=== PATIENT | male | born 1945 | race Caucasian/White ===

== ENCOUNTER 2016-12-15 20:10 | Inpatient (IN) | payer MEDICARE ==
[~2016-12-15] VITALS: Ht 193 cm; Wt 115.7 kg
[2016-12-15] MEDS ORDERED: ENALAPRILAT 1.25 MG/ML, 2ML IVPush PRN (22:00)
[2016-12-15] MEDS ORDERED: VANCOMYCIN PER PHARMACY MC PRN (22:00)
[2016-12-15] MEDS ORDERED: ONDANSETRON 2MG/ML, 2ML IVPush PRN (22:00)
[2016-12-15] MEDS ORDERED: PLEASE ENTER ALLERGIES MC SCH ×2 (22:00)
[2016-12-15] MEDS ORDERED: TEMAZEPAM 15 MG CAPSULE PO PRN (22:00)
[2016-12-15] MEDS ORDERED: PHARMACOKINETIC MONITORING MC PRN (22:30)
[2016-12-15] MEDS ORDERED: VANCOMYCIN 2,100 MG in SODIUM CHLORIDE 0.9% 500 ML IV ONE (22:30)
[2016-12-15] MEDS ORDERED: PHARMACOKINETIC CONSULTATION MC ONE (22:30)
[2016-12-15] MEDS: PIPERACILLIN/TAZO/PMX 3.375GM 50 ML IV SCH (22:45)
[2016-12-15] MEDS: INSULIN ASPART 100 UNITS/ML, PEN SQ-INSULIN SCH (22:46)
[2016-12-16 02:29] VITALS: BP 103/63
[2016-12-16] MEDS: PIPERACILLIN/TAZO/PMX 3.375GM 50 ML IV SCH ×4 (04:12→21:28)
[2016-12-16 04:34] LABS: HEMATOCRIT 42.3 % (39.2-51.8); HEMOGLOBIN 14.2 g/dL (13.7-18.0); WHITE BLOOD COUNT 11.6 x10^3/uL (3.4-10)
[2016-12-16 04:46] LABS: ASPARTATE AMINO TRANSFERASE 17 U/L (15-37); BLOOD UREA NITROGEN 12 mg/dL (7-18)
[2016-12-16] MEDS: VANCOMYCIN 2,100 MG in SODIUM CHLORIDE 0.9% 500 ML IV SCH (06:04)
[2016-12-16] MEDS: INSULIN ASPART 100 UNITS/ML, PEN SQ-INSULIN SCH ×4 (07:00→21:00)
[2016-12-16] MEDS: LACTOBACILLUS 1GM/ PACKET PO SCH ×3 (07:34→21:28)
[2016-12-16 08:53] VITALS: BP 116/75
[2016-12-16] MEDS ORDERED: FENTANYL PF 100 MCG/2ML ONE ×3 (11:03→12:06)
[2016-12-16] MEDS ORDERED: BUPIVACAINE/PF 0.5% ONE (11:40)
[2016-12-16] MEDS ORDERED: ACETAMINOPHEN 325 MG TABLET PO PRN (13:00)
[2016-12-16] MEDS ORDERED: FENTANYL PF 100 MCG/2ML IV PRN (13:00)
[2016-12-16] MEDS ORDERED: LABETALOL 5MG/ML, 20ML IV PRN (13:00)
[2016-12-16] MEDS ORDERED: OXYcodone 5 MG/5 ML ORAL.SOL UDC PO PRN (13:00)
[2016-12-16] MEDS ORDERED: ONDANSETRON 2MG/ML, 2ML IVPush PRN (13:00)
[2016-12-16] MEDS ORDERED: HYDROmorphone 1 MG/ML, 1ML IV PRN (13:00)
[2016-12-16 14:15] VITALS: BP 152/98
[2016-12-16] MEDS: ACETAMINOPHEN 325 MG TABLET PO PRN ×2 (15:34→21:28)
[2016-12-16] MEDS ORDERED: ONDANSETRON 2MG/ML, 2ML ONE (15:40)
[2016-12-16] MEDS ORDERED: PROPOFOL 10 MG/ML, 20ML ONE (15:40)
[2016-12-17] VITALS: BP 142/77
[2016-12-17 03:12] VITALS: BP 114/74
[2016-12-17] MEDS: PIPERACILLIN/TAZO/PMX 3.375GM 50 ML IV SCH ×4 (04:26→21:59)
[2016-12-17] MEDS: ACETAMINOPHEN 325 MG TABLET PO PRN (04:28)
[2016-12-17] MEDS: VANCOMYCIN 2,100 MG in SODIUM CHLORIDE 0.9% 500 ML IV SCH (05:51)
[2016-12-17] MEDS: INSULIN ASPART 100 UNITS/ML, PEN SQ-INSULIN SCH ×4 (06:30→21:59)
[2016-12-17 06:33] VITALS: BP 116/78
[2016-12-17] MEDS: LACTOBACILLUS 1GM/ PACKET PO SCH ×3 (09:11→21:59)
[2016-12-17 12:09] VITALS: BP 126/79
[2016-12-17] MEDS: CLOPIDOGREL 75 MG TABLET PO SCH (16:22)
[2016-12-17 19:10] VITALS: BP 136/72
[2016-12-18 02:00] VITALS: BP 147/70
[2016-12-18] MEDS: PIPERACILLIN/TAZO/PMX 3.375GM 50 ML IV SCH ×3 (04:08→18:02)
[2016-12-18] MEDS: VANCOMYCIN 2,100 MG in SODIUM CHLORIDE 0.9% 500 ML IV SCH (06:05)
[2016-12-18] MEDS: INSULIN ASPART 100 UNITS/ML, PEN SQ-INSULIN SCH ×4 (07:50→20:25)
[2016-12-18 08:06] VITALS: BP 133/82
[2016-12-18] MEDS: CLOPIDOGREL 75 MG TABLET PO SCH (08:50)
[2016-12-18] MEDS: LACTOBACILLUS 1GM/ PACKET PO SCH ×3 (08:50→20:25)
[2016-12-18 14:32] VITALS: BP 149/89
[2016-12-18 18:53] VITALS: BP 109/61
[2016-12-19] MEDS: PIPERACILLIN/TAZO/PMX 3.375GM 50 ML IV SCH ×5 (00:03→23:39)
[2016-12-19 00:36] VITALS: BP 120/90
[2016-12-19] MEDS: VANCOMYCIN 2,100 MG in SODIUM CHLORIDE 0.9% 500 ML IV SCH (06:10)
[2016-12-19 06:35] VITALS: BP 133/64
[2016-12-19] MEDS: CLOPIDOGREL 75 MG TABLET PO SCH (08:09)
[2016-12-19] MEDS: LACTOBACILLUS 1GM/ PACKET PO SCH ×3 (08:10→21:00)
[2016-12-19] MEDS: INSULIN ASPART 100 UNITS/ML, PEN SQ-INSULIN SCH ×4 (08:10→21:00)
[2016-12-19 13:19] VITALS: BP 132/70
[2016-12-19 18:48] VITALS: BP 138/76
[2016-12-20 01:30] VITALS: BP 127/61
[2016-12-20] MEDS: PIPERACILLIN/TAZO/PMX 3.375GM 50 ML IV SCH ×3 (05:46→21:18)
[2016-12-20 06:04] LABS: HEMATOCRIT 39.9 % (39.2-51.8); HEMOGLOBIN 13.4 g/dL (13.7-18.0); WHITE BLOOD COUNT 10.6 x10^3/uL (3.4-10)
[2016-12-20 08:05] VITALS: BP 132/66
[2016-12-20] MEDS: CLOPIDOGREL 75 MG TABLET PO SCH (08:09)
[2016-12-20] MEDS: LACTOBACILLUS 1GM/ PACKET PO SCH ×3 (08:09→21:17)
[2016-12-20] MEDS: INSULIN ASPART 100 UNITS/ML, PEN SQ-INSULIN SCH ×4 (08:09→21:20)
[2016-12-20 12:40] VITALS: BP 145/88
[2016-12-20] MEDS ORDERED: VANCOMYCIN 2,000 MG in SODIUM CHLORIDE 0.9% 500 ML IV SCH (17:00)
[2016-12-20 18:54] VITALS: BP 144/75
[2016-12-21] MEDS: PIPERACILLIN/TAZO/PMX 3.375GM 50 ML IV SCH ×3 (02:56→15:00)
[2016-12-21 03:03] VITALS: BP 148/70
[2016-12-21] MEDS: INSULIN ASPART 100 UNITS/ML, PEN SQ-INSULIN SCH ×4 (06:43→21:01)
[2016-12-21 09:00] VITALS: BP 146/76
[2016-12-21] MEDS: CLOPIDOGREL 75 MG TABLET PO SCH (09:30)
[2016-12-21] MEDS: LACTOBACILLUS 1GM/ PACKET PO SCH ×3 (09:30→21:00)
[2016-12-21 14:00] VITALS: BP 127/76
[2016-12-21] MEDS ORDERED: PIPERACILLIN/TAZO(ZOSYN) 2.25 GM in NS 50 ML IVPB SCH (15:30)
[2016-12-21 16:14] LABS: BLOOD UREA NITROGEN 42 mg/dL (7-18)
[2016-12-21 19:46] VITALS: BP 155/85
[2016-12-21] MEDS: PIPERACILLIN/TAZO/PMX 2.25GM 50 ML IVPB SCH (23:03)
[2016-12-22 02:07] VITALS: BP 160/91
[2016-12-22 05:41] LABS: BLOOD UREA NITROGEN 44 mg/dL (7-18)
[2016-12-22] MEDS: PIPERACILLIN/TAZO/PMX 2.25GM 50 ML IVPB SCH ×3 (05:59→20:53)
[2016-12-22] MEDS: INSULIN ASPART 100 UNITS/ML, PEN SQ-INSULIN SCH ×4 (05:59→20:59)
[2016-12-22 07:02] VITALS: BP 147/90
[2016-12-22] MEDS: LACTOBACILLUS 1GM/ PACKET PO SCH ×3 (08:45→20:53)
[2016-12-22] MEDS: CLOPIDOGREL 75 MG TABLET PO SCH (08:45)
[2016-12-22 12:12] LABS: POTASSIUM,URINE RANDOM 12 mmol/L
[2016-12-22 14:58] VITALS: BP 172/82
[2016-12-22 20:48] VITALS: BP 157/85
[2016-12-23] MEDS: PIPERACILLIN/TAZO/PMX 2.25GM 50 ML IVPB SCH ×4 (01:47→20:06)
[2016-12-23 02:02] VITALS: BP 153/87
[2016-12-23 04:33] LABS: HEMATOCRIT 39.8 % (39.2-51.8); HEMOGLOBIN 13.3 g/dL (13.7-18.0); WHITE BLOOD COUNT 9.4 x10^3/uL (3.4-10)
[2016-12-23 04:49] LABS: BLOOD UREA NITROGEN 32 mg/dL (7-18)
[2016-12-23 04:53] LABS: ASPARTATE AMINO TRANSFERASE 23 U/L (15-37); FERRITIN 746.4 ng/mL (26-388); TOTAL IRON BINDING CAPACITY 149 mcg/dL (250-450)
[2016-12-23] MEDS: INSULIN ASPART 100 UNITS/ML, PEN SQ-INSULIN SCH ×4 (07:00→20:30)
[2016-12-23 07:50] VITALS: BP 134/67
[2016-12-23] MEDS: LACTOBACILLUS 1GM/ PACKET PO SCH ×3 (09:00→20:07)
[2016-12-23 09:03] LABS: HEP B SURF. AB < 3.1 mIU/mL (0.0-10.0)
[2016-12-23] MEDS: CLOPIDOGREL 75 MG TABLET PO SCH (13:40)
[2016-12-23 15:45] VITALS: BP 137/77
[2016-12-23 20:32] VITALS: BP 133/81
[2016-12-24] MEDS: PIPERACILLIN/TAZO/PMX 2.25GM 50 ML IVPB SCH ×4 (02:07→19:55)
[2016-12-24 03:02] VITALS: BP 112/72
[2016-12-24 05:29] LABS: HEMOGLOBIN 13.5 g/dL (13.7-18.0); WHITE BLOOD COUNT 9.9 x10^3/uL (3.4-10)
[2016-12-24 05:45] LABS: ASPARTATE AMINO TRANSFERASE 21 U/L (15-37); BLOOD UREA NITROGEN 29 mg/dL (7-18)
[2016-12-24] MEDS: INSULIN ASPART 100 UNITS/ML, PEN SQ-INSULIN SCH ×4 (07:54→19:56)
[2016-12-24] MEDS: CLOPIDOGREL 75 MG TABLET PO SCH (07:55)
[2016-12-24] MEDS: LACTOBACILLUS 1GM/ PACKET PO SCH ×3 (08:01→19:55)
[2016-12-24 08:25] VITALS: BP 136/77
[2016-12-24 10:07] LABS: COMPLEMENT C3 133 mg/dL (82-167); COMPLEMENT C4 25 mg/dL (14-44); COMPLEMENT TOTAL (CH50) >60 U/mL (42-60)
[2016-12-24 15:10] VITALS: BP 133/88
[2016-12-24 19:05] VITALS: BP 141/88
[2016-12-25] MEDS: PIPERACILLIN/TAZO/PMX 2.25GM 50 ML IVPB SCH ×4 (02:10→23:35)
[2016-12-25 02:11] VITALS: BP 126/70
[2016-12-25 05:21] LABS: HEMATOCRIT 41.9 % (39.2-51.8); HEMOGLOBIN 13.9 g/dL (13.7-18.0); WHITE BLOOD COUNT 12.3 x10^3/uL (3.4-10)
[2016-12-25 05:32] LABS: ASPARTATE AMINO TRANSFERASE 25 U/L (15-37); BLOOD UREA NITROGEN 23 mg/dL (7-18)
[2016-12-25] MEDS: INSULIN ASPART 100 UNITS/ML, PEN SQ-INSULIN SCH ×4 (07:48→20:07)
[2016-12-25] MEDS: CLOPIDOGREL 75 MG TABLET PO SCH (08:08)
[2016-12-25] MEDS: LACTOBACILLUS 1GM/ PACKET PO SCH ×3 (08:08→20:07)
[2016-12-25 11:27] VITALS: BP 117/77
[2016-12-25 13:07] LABS: UR ALBUMIN 54.7 % (.); UR ALPHA-1-GLOBULIN 3.7 % (.); UR ALPHA-2-GLOBULIN 9.3 % (.); UR BETA GLOBULIN 15.2 % (.); UR GAMMA GLOBULIN 17.1 % (.); UR M-SPIKE % Not Observed % (Not Observed)
[2016-12-25] MEDS ORDERED: EPINEPHRINE 1 MG/ML, 1ML ONE (14:05)
[2016-12-25] MEDS ORDERED: BUPIVACAINE/PF 0.5% ONE (14:05)
[2016-12-25] MEDS ORDERED: HEPARIN 1,000 UNITS/ML, 10ML ONE (14:05)
[2016-12-25] MEDS ORDERED: PROTAMINE SULFATE 10 MG/ML, 5ML ONE (14:05)
[2016-12-25] MEDS ORDERED: MIDAZOLAM 1 MG/ML, 2ML ONE (14:24)
[2016-12-25] MEDS ORDERED: FENTANYL PF 100 MCG/2ML ONE (14:24)
[2016-12-25] MEDS ORDERED: SUCCINYLCHOLINE 20 MG/ML, 10ML ONE (15:05)
[2016-12-25] MEDS ORDERED: CEFAZOLIN 1,000 MG ONE (15:05)
[2016-12-25] MEDS ORDERED: PROPOFOL 10 MG/ML, 20ML ONE (15:05)
[2016-12-25 15:07] LABS: A/G RATIO 0.9 (0.7-1.7); ALBUMIN 2.7 g/dL (2.9-4.4); ALPHA-1-GLOBULIN 0.3 g/dL (0.0-0.4); GAMMA GLOBULIN 0.8 g/dL (0.4-1.8); PROTEIN TOTAL 5.8 g/dL (6.0-8.5)
[2016-12-25] MEDS ORDERED: ONDANSETRON 2MG/ML, 2ML IVPush PRN (15:30)
[2016-12-25] MEDS ORDERED: OXYcodone 5 MG/5 ML ORAL.SOL UDC PO PRN (15:30)
[2016-12-25] MEDS ORDERED: ACETAMINOPHEN 325 MG TABLET PO PRN (15:30)
[2016-12-25] MEDS ORDERED: FENTANYL PF 100 MCG/2ML IV PRN (15:30)
[2016-12-25] MEDS ORDERED: HYDROmorphone 1 MG/ML, 1ML IV PRN (15:30)
[2016-12-25] MEDS ORDERED: hydrALAzine 20 MG/ML, 1ML IV PRN (15:30)
[2016-12-25] MEDS ORDERED: LABETALOL 5MG/ML, 20ML IV PRN (15:30)
[2016-12-25 20:58] VITALS: BP 134/79
[2016-12-25 23:39] VITALS: BP 147/82
[2016-12-26 03:57] VITALS: BP 143/86
[2016-12-26 05:02] LABS: HEMATOCRIT 38.8 % (39.2-51.8); WHITE BLOOD COUNT 12.6 x10^3/uL (3.4-10)
[2016-12-26 05:28] LABS: BLOOD UREA NITROGEN 31 mg/dL (7-18)
[2016-12-26] MEDS: INSULIN ASPART 100 UNITS/ML, PEN SQ-INSULIN SCH ×4 (06:24→21:01)
[2016-12-26 07:35] VITALS: BP 152/88
[2016-12-26] MEDS: CLOPIDOGREL 75 MG TABLET PO SCH (08:39)
[2016-12-26] MEDS: LACTOBACILLUS 1GM/ PACKET PO SCH ×3 (08:39→21:01)
[2016-12-26] MEDS: PIPERACILLIN/TAZO/PMX 2.25GM 50 ML IVPB SCH ×2 (13:15→21:01)
[2016-12-26 14:45] VITALS: BP 139/82
[2016-12-26 19:31] VITALS: BP 126/83
[2016-12-27 01:13] VITALS: BP 145/77
[2016-12-27] MEDS: PIPERACILLIN/TAZO/PMX 2.25GM 50 ML IVPB SCH ×3 (04:45→20:40)
[2016-12-27 06:08] LABS: HEMATOCRIT 40.1 % (39.2-51.8); HEMOGLOBIN 13.3 g/dL (13.7-18.0); WHITE BLOOD COUNT 11.9 x10^3/uL (3.4-10)
[2016-12-27 06:17] LABS: ASPARTATE AMINO TRANSFERASE 18 U/L (15-37); BLOOD UREA NITROGEN 22 mg/dL (7-18)
[2016-12-27] MEDS: INSULIN ASPART 100 UNITS/ML, PEN SQ-INSULIN SCH ×4 (06:39→20:40)
[2016-12-27 07:03] VITALS: BP 140/84
[2016-12-27] MEDS: LACTOBACILLUS 1GM/ PACKET PO SCH ×3 (09:31→20:40)
[2016-12-27] MEDS: CLOPIDOGREL 75 MG TABLET PO SCH (09:31)
[2016-12-27 14:22] VITALS: BP 130/77
[2016-12-27] MEDS ORDERED: LABETALOL 5MG/ML, 20ML IV PRN (16:30)
[2016-12-27] MEDS ORDERED: hydrALAzine 20 MG/ML, 1ML IV PRN (16:30)
[2016-12-27] MEDS ORDERED: FENTANYL PF 100 MCG/2ML IV PRN (16:30)
[2016-12-27] MEDS ORDERED: ONDANSETRON 2MG/ML, 2ML IVPush PRN ×2 (16:30)
[2016-12-27] MEDS ORDERED: OXYcodone 5 MG/5 ML ORAL.SOL UDC PO PRN (16:30)
[2016-12-27] MEDS ORDERED: ACETAMINOPHEN 325 MG TABLET PO PRN (16:30)
[2016-12-27] MEDS ORDERED: HYDROmorphone 1 MG/ML, 1ML IV PRN (16:30)
[2016-12-27] MEDS ORDERED: TEMAZEPAM 15 MG CAPSULE PO PRN (16:30)
[2016-12-27 20:36] VITALS: BP 144/87
[2016-12-28 02:54] VITALS: BP 138/83
[2016-12-28] MEDS: PIPERACILLIN/TAZO/PMX 2.25GM 50 ML IVPB SCH ×2 (05:17→13:48)
[2016-12-28 06:01] LABS: BLOOD UREA NITROGEN 31 mg/dL (7-18)
[2016-12-28 06:03] LABS: HEMATOCRIT 39.9 % (39.2-51.8); HEMOGLOBIN 13.3 g/dL (13.7-18.0); WHITE BLOOD COUNT 11.4 x10^3/uL (3.4-10)
[2016-12-28] MEDS: INSULIN ASPART 100 UNITS/ML, PEN SQ-INSULIN SCH ×4 (06:26→21:33)
[2016-12-28 07:16] VITALS: BP 148/90
[2016-12-28] MEDS: LACTOBACILLUS 1GM/ PACKET PO SCH ×3 (08:08→21:23)
[2016-12-28] MEDS: CLOPIDOGREL 75 MG TABLET PO SCH (08:08)
[2016-12-28 15:26] VITALS: BP 144/83
[2016-12-28 19:37] VITALS: BP 152/83
[2016-12-29 01:45] VITALS: BP 139/75
[2016-12-29] MEDS: INSULIN ASPART 100 UNITS/ML, PEN SQ-INSULIN SCH ×4 (06:12→21:00)
[2016-12-29 08:03] VITALS: BP 126/80
[2016-12-29] MEDS: LACTOBACILLUS 1GM/ PACKET PO SCH ×3 (08:55→21:07)
[2016-12-29 09:55] VITALS: BP 136/87
[2016-12-29] MEDS: CLOPIDOGREL 75 MG TABLET PO SCH (12:38)
[2016-12-29 14:04] VITALS: BP 133/70
[2016-12-29 21:28] VITALS: BP 132/88
[2016-12-30 02:00] VITALS: BP 154/65
[2016-12-30 05:22] LABS: HEMATOCRIT 42.9 % (39.2-51.8); HEMOGLOBIN 14.4 g/dL (13.7-18.0)
[2016-12-30 05:31] LABS: BLOOD UREA NITROGEN 23 mg/dL (7-18)
[2016-12-30] MEDS: INSULIN ASPART 100 UNITS/ML, PEN SQ-INSULIN SCH ×2 (07:00→11:22)
[2016-12-30 07:38] VITALS: BP 120/75
[2016-12-30] MEDS: CLOPIDOGREL 75 MG TABLET PO SCH (08:05)
[2016-12-30] MEDS: LACTOBACILLUS 1GM/ PACKET PO SCH (08:05)
[2016-12-30] MEDS ORDERED: INSU100I18 SQ-INSULIN (11:07)
[2016-12-30] MEDS ORDERED: CLOP75TA PO (11:07)
[2016-12-30 13:37] VITALS: BP 125/76
== END 2016-12-30 13:50 | DRG 853 ==
LOC: 4NOR 21:34 → 4WST 12-29 09:48
PROVIDERS: ADMIT Internal Medicine; ATTEND Family Medicine
PROC: 0Y6S0Z0 Detachment at Left 2nd Toe, Complete, Open Approach (ICD-10-PCS; principal; 2016-12-16 13:00)
PROC: 02HV33Z Insertion of Infusion Device into Superior Vena Cava, Percutaneous Approach (ICD-10-PCS; 2016-12-22)
PROC: B548ZZA Ultrasonography of Superior Vena Cava, Guidance (ICD-10-PCS; 2016-12-22)
PROC: 5A1D60Z (ICD-10-PCS; 2016-12-22)
PROC: 0JH60XZ Insertion of Tunneled Vascular Access Device into Chest Subcutaneous Tissue and Fascia, Open Approach (ICD-10-PCS; 2016-12-25)
PROC: B5181ZA Fluoroscopy of Superior Vena Cava using Low Osmolar Contrast, Guidance (ICD-10-PCS; 2016-12-25)
DX: A41.9 Sepsis, unspecified organism (principal); E43 Unspecified severe protein-calorie malnutrition; N17.9 Acute kidney failure, unspecified; E11.52 Type 2 diabetes mellitus with diabetic peripheral angiopathy with gangrene; L03.116 Cellulitis of left lower limb; N18.6 End stage renal disease; I12.0 Hypertensive chronic kidney disease with stage 5 chronic kidney disease or end stage renal disease; E83.51 Hypocalcemia; E11.22 Type 2 diabetes mellitus with diabetic chronic kidney disease; D64.9 Anemia, unspecified; E11.628 Type 2 diabetes mellitus with other skin complications; E11.65 Type 2 diabetes mellitus with hyperglycemia; I35.0 Nonrheumatic aortic (valve) stenosis; E87.5 Hyperkalemia; T36.8X5A Adverse effect of other systemic antibiotics, initial encounter; Z68.31 Body mass index [BMI] 31.0-31.9, adult
CPT/HCPCS: 36415; 36556; 76000; 76770; 76937; 77001; 80048; 80053; 80069; 80074; 80202; 81003; 82040; 82306; 82436; 82550; 82565; 82570; 82728; 82962; 83036; 83540; 83550; 83735; 83970; 84100; 84133; 84155; 84156; 84165; 84166; 84300; 84550; 85025; 86160; 86162; 86480; 86704; 86706; 87070; 87075; 87205; 87324; 87340; 88305; 88311; 93005; 93306; J0171; J0690; J1644; J1815; J2250; J2405; J2543; J2704; J2720; J3010; J3370; J3490; C1751; J0330; J1642; J7040

== ENCOUNTER 2017-01-06 13:19 | Inpatient (IN) | payer MEDICARE ==
[~2017-01-06] VITALS: Ht 193 cm; Wt 114.6 kg
[~2017-01-06 13:19] MED LIST: CLOP75TA PO; INSU100I18 SQ-INSULIN
[2017-01-06 14:06] LABS: HEMATOCRIT 46.1 % (39.2-51.8); HEMOGLOBIN 15.5 g/dL (13.7-18.0)
[2017-01-06 14:17] LABS: BLOOD UREA NITROGEN 22 mg/dL (7-18)
[2017-01-06 14:20] LABS: IS PT STATUS REG ER OR PRE ER? YES
[2017-01-06 15:23] LABS: DIFF TOTAL CELLS COUNTED 100 CELL DIFF
[2017-01-06 15:26] LABS: VERIFY COUNTS? YES
[2017-01-06] MEDS ORDERED: CEFTRIAXONE PMX 1GM/50ML 50 ML IVPB ONE (17:30)
[2017-01-06] MEDS ORDERED: CEFTRIAXONE PMX 1GM/50ML 50 ML ONE (17:52)
[2017-01-06] MEDS ORDERED: VANCOMYCIN PER PHARMACY MC PRN (18:30)
[2017-01-06] MEDS ORDERED: PHARMACY MAY ADJ FOR RENAL FX MC PRN (19:00)
[2017-01-06] MEDS ORDERED: TEMAZEPAM 15 MG CAPSULE PO PRN (19:00)
[2017-01-06] MEDS ORDERED: LABETALOL 5MG/ML, 20ML IVPush PRN (19:00)
[2017-01-06] MEDS ORDERED: ONDANSETRON 2MG/ML, 2ML IVPush PRN (19:00)
[2017-01-06 20:13] VITALS: BP 112/78
[2017-01-06] MEDS ORDERED: PHARMACOKINETIC MONITORING MC PRN (20:30)
[2017-01-06] MEDS ORDERED: PHARMACOKINETIC CONSULTATION MC ONE (20:30)
[2017-01-06] MEDS ORDERED: VANCOMYCIN 2,000 MG in SODIUM CHLORIDE 0.9% 500 ML IV ONE (21:00)
[2017-01-06] MEDS: INSULIN ASPART 100 UNITS/ML, PEN SQ-INSULIN SCH (22:23)
[2017-01-07 00:28] LABS: IS PT STATUS REG ER OR PRE ER? NO
[2017-01-07 02:12] VITALS: BP 107/75
[2017-01-07] MEDS ORDERED: CEFTRIAXONE PMX 1GM/50ML 50 ML IV SCH (05:30)
[2017-01-07] MEDS ORDERED: MORPHINE SULFATE 4 MG/ML, 1ML ONE (05:48)
[2017-01-07] MEDS: morphine SULFATE 10 MG/ML, 1ML IVPush PRN ×4 (05:51→17:02)
[2017-01-07 06:09] LABS: HEMATOCRIT 43.3 % (39.2-51.8); HEMOGLOBIN 14.6 g/dL (13.7-18.0); WHITE BLOOD COUNT 19.3 x10^3/uL (3.4-10)
[2017-01-07 06:21] LABS: BLOOD UREA NITROGEN 35 mg/dL (7-18)
[2017-01-07 06:27] LABS: IS PT STATUS REG ER OR PRE ER? NO
[2017-01-07 06:30] VITALS: BP 104/69
[2017-01-07] MEDS: INSULIN ASPART 100 UNITS/ML, PEN SQ-INSULIN SCH ×4 (07:00→22:02)
[2017-01-07] MEDS ORDERED: CLOPIDOGREL 75 MG TABLET PO SCH (09:00)
[2017-01-07] MEDS ORDERED: PHARMACY MAY ADJ FOR RENAL FX MC PRN (09:30)
[2017-01-07] MEDS ORDERED: LORazepam 2 MG/ML, 1ML IVPush ONE ×2 (09:30→11:00)
[2017-01-07] MEDS ORDERED: ASPIRIN 300 MG SUPP PR ONE (10:00)
[2017-01-07] MEDS: GABAPENTIN 100 MG CAPSULE PO SCH ×3 (10:00→20:41)
[2017-01-07] MEDS ORDERED: PIPERACILLIN/TAZO/PMX 4.5GM 100 ML IV ONE (10:00)
[2017-01-07 15:12] VITALS: BP 135/74
[2017-01-07] MEDS: PIPERACILLIN/TAZO 2.25 GM in NS 50 ML IV SCH (18:10)
[2017-01-07 19:20] VITALS: BP 118/79
[2017-01-08 00:55] VITALS: BP 136/77
[2017-01-08] MEDS: PIPERACILLIN/TAZO 2.25 GM in NS 50 ML IV SCH ×3 (02:20→18:39)
[2017-01-08 05:17] LABS: HEMATOCRIT 38.9 % (39.2-51.8); HEMOGLOBIN 13.3 g/dL (13.7-18.0); WHITE BLOOD COUNT 17.4 x10^3/uL (3.4-10)
[2017-01-08 06:03] LABS: BLOOD UREA NITROGEN 56 mg/dL (7-18)
[2017-01-08 07:07] VITALS: BP 120/75
[2017-01-08] MEDS: GABAPENTIN 100 MG CAPSULE PO SCH ×3 (08:14→21:00)
[2017-01-08] MEDS ORDERED: CHOLECALCIFEROL 1,000 UNIT TABLET PO SCH (09:00)
[2017-01-08] MEDS ORDERED: [UNRECOGNIZED DRUG - REMARK] XX PRN (09:30)
[2017-01-08] MEDS: INSULIN ASPART 100 UNITS/ML, PEN SQ-INSULIN SCH ×4 (10:09→22:20)
[2017-01-08] MEDS: LORazepam 2 MG/ML, 1ML IVPush PRN ×2 (10:15→22:19)
[2017-01-08 12:53] VITALS: BP 163/99
[2017-01-08] MEDS ORDERED: SODIUM CHLORIDE 0.9% 1,000 ML IV SCH (13:06)
[2017-01-08] MEDS ORDERED: hydrALAzine 20 MG/ML, 1ML IV PRN (13:30)
[2017-01-08 20:46] VITALS: BP 174/96
[2017-01-08] MEDS: morphine SULFATE 10 MG/ML, 1ML IVPush PRN (22:20)
[2017-01-09 01:31] VITALS: BP 176/108
[2017-01-09] MEDS: PIPERACILLIN/TAZO 2.25 GM in NS 50 ML IV SCH ×3 (01:41→18:14)
[2017-01-09 03:07] VITALS: BP 151/91
[2017-01-09] MEDS ORDERED: TEMAZEPAM 15 MG CAPSULE NG PRN (04:00)
[2017-01-09 05:52] LABS: BLOOD UREA NITROGEN 49 mg/dL (7-18)
[2017-01-09 05:56] LABS: HEMATOCRIT 35.9 % (39.2-51.8); HEMOGLOBIN 11.9 g/dL (13.7-18.0); WHITE BLOOD COUNT 13.2 x10^3/uL (3.4-10)
[2017-01-09 06:31] VITALS: BP 143/85
[2017-01-09] MEDS: INSULIN ASPART 100 UNITS/ML, PEN SQ-INSULIN SCH ×4 (08:51→20:37)
[2017-01-09] MEDS ORDERED: CLOPIDOGREL 75 MG TABLET PO SCH (09:00)
[2017-01-09] MEDS: GABAPENTIN 250 MG/5 ML ORAL SOL NG SCH ×2 (09:00→18:14)
[2017-01-09] MEDS: CHOLECALCIFEROL 1,000 UNIT TABLET NG SCH (10:18)
[2017-01-09] MEDS: CLOPIDOGREL 75 MG TABLET NG SCH (10:19)
[2017-01-09 12:32] VITALS: BP 143/89
[2017-01-09 18:21] VITALS: BP 136/85
[2017-01-09] MEDS: GABAPENTIN 100 MG CAPSULE NG SCH (20:37)
[2017-01-10] MEDS: PIPERACILLIN/TAZO 2.25 GM in NS 50 ML IV SCH ×3 (01:58→20:07)
[2017-01-10] MEDS: INSULIN ASPART 100 UNITS/ML, PEN SQ-INSULIN SCH ×4 (02:04→22:55)
[2017-01-10 03:40] VITALS: BP 131/79
[2017-01-10 05:13] LABS: BLOOD UREA NITROGEN 78 mg/dL (7-18); HEMATOCRIT 36.5 % (39.2-51.8); HEMOGLOBIN 12.1 g/dL (13.7-18.0); WHITE BLOOD COUNT 10.2 x10^3/uL (3.4-10)
[2017-01-10 05:14] LABS: ASPARTATE AMINO TRANSFERASE 29 U/L (15-37)
[2017-01-10 07:28] VITALS: BP 137/77
[2017-01-10] MEDS: CHOLECALCIFEROL 1,000 UNIT TABLET NG SCH (08:54)
[2017-01-10] MEDS: GABAPENTIN 100 MG CAPSULE NG SCH (08:55)
[2017-01-10] MEDS: CLOPIDOGREL 75 MG TABLET NG SCH (08:55)
[2017-01-10] MEDS ORDERED: LACTULOSE 10 GM/15 ML UDC PO SCH (12:00)
[2017-01-10 13:12] VITALS: BP 126/73
[2017-01-10] MEDS: GABAPENTIN 250 MG/5 ML ORAL SOL NG SCH ×2 (16:00→20:07)
[2017-01-10] MEDS ORDERED: VANCOMYCIN PMX 1GM/200ML 200 ML IV ONE (16:00)
[2017-01-10] MEDS ORDERED: GABAPENTIN 250 MG/5 ML ORAL SOL NG SCH (16:00)
[2017-01-10 19:48] VITALS: BP 128/74
[2017-01-10] MEDS ORDERED: LACTULOSE 10 GM/15 ML UDC PO ONE (20:30)
[2017-01-11 01:55] VITALS: BP 144/88
[2017-01-11] MEDS: PIPERACILLIN/TAZO 2.25 GM in NS 50 ML IV SCH ×3 (03:48→21:43)
[2017-01-11] MEDS: INSULIN ASPART 100 UNITS/ML, PEN SQ-INSULIN SCH ×4 (04:37→21:43)
[2017-01-11] MEDS: GABAPENTIN 250 MG/5 ML ORAL SOL NG SCH ×3 (07:55→21:42)
[2017-01-11] MEDS: CLOPIDOGREL 75 MG TABLET NG SCH (07:55)
[2017-01-11] MEDS: CHOLECALCIFEROL 1,000 UNIT TABLET NG SCH (07:55)
[2017-01-11 08:05] VITALS: BP 154/82
[2017-01-11] MEDS: LORazepam 2 MG/ML, 1ML IVPush PRN (11:49)
[2017-01-11] MEDS ORDERED: LIDOCAINE 1%, 20ML ONE (12:08)
[2017-01-11 13:36] VITALS: BP 157/90
[2017-01-11 14:12] LABS: GLUCOSE, CSF 150 mg/dL (40-80)
[2017-01-11 19:20] VITALS: BP 138/84
[2017-01-12 00:45] VITALS: BP 148/81
[2017-01-12] MEDS: PIPERACILLIN/TAZO 2.25 GM in NS 50 ML IV SCH ×3 (05:56→22:30)
[2017-01-12] MEDS: INSULIN ASPART 100 UNITS/ML, PEN SQ-INSULIN SCH ×4 (05:57→23:00)
[2017-01-12 06:45] VITALS: BP 122/76
[2017-01-12] MEDS: POLYETHYLENE GLYCOL 17 GM PACKET PO PRN (07:59)
[2017-01-12] MEDS: CHOLECALCIFEROL 1,000 UNIT TABLET NG SCH (08:00)
[2017-01-12] MEDS: CLOPIDOGREL 75 MG TABLET NG SCH (08:00)
[2017-01-12] MEDS: GABAPENTIN 250 MG/5 ML ORAL SOL NG SCH ×3 (08:00→21:00)
[2017-01-12] MEDS: ACYCLOVIR 1,000 MG in SODIUM CHLORIDE 0.9% 250 ML IV SCH (09:09)
[2017-01-12 14:03] VITALS: BP 138/34
[2017-01-12] MEDS ORDERED: INSULIN DETEMIR 100 UNITS/ML, PEN SQ-INSULIN SCH (17:00)
[2017-01-12 21:29] VITALS: BP 164/79
[2017-01-13 00:59] VITALS: BP 114/70
[2017-01-13] MEDS: INSULIN ASPART 100 UNITS/ML, PEN SQ-INSULIN SCH ×4 (05:43→23:11)
[2017-01-13] MEDS: PIPERACILLIN/TAZO 2.25 GM in NS 50 ML IV SCH ×2 (06:22→15:39)
[2017-01-13 07:27] VITALS: BP 155/82
[2017-01-13] MEDS: POLYETHYLENE GLYCOL 17 GM PACKET PO PRN (08:15)
[2017-01-13] MEDS: CLOPIDOGREL 75 MG TABLET NG SCH (08:15)
[2017-01-13] MEDS: CHOLECALCIFEROL 1,000 UNIT TABLET NG SCH (08:15)
[2017-01-13] MEDS: GABAPENTIN 250 MG/5 ML ORAL SOL NG SCH ×2 (08:15→15:39)
[2017-01-13 10:21] LABS: HEMATOCRIT 35.5 % (39.2-51.8); WHITE BLOOD COUNT 13.5 x10^3/uL (3.4-10)
[2017-01-13 10:26] LABS: BLOOD UREA NITROGEN 65 mg/dL (7-18)
[2017-01-13] MEDS: INSULIN DETEMIR 100 UNITS/ML, PEN SQ-INSULIN SCH ×2 (11:25→23:12)
[2017-01-13] MEDS: ENOXAPARIN 30 MG/0.3 ML SQ SCH (14:13)
[2017-01-13] MEDS: ACYCLOVIR 1,000 MG in SODIUM CHLORIDE 0.9% 250 ML IV SCH (14:13)
[2017-01-13 15:29] VITALS: BP 140/83
[2017-01-13 21:35] VITALS: BP 122/76
[2017-01-13] MEDS ORDERED: METOPROLOL TARTRATE 25 MG TABLET NG ONE (22:30)
[2017-01-14] MEDS: LORazepam 2 MG/ML, 1ML IVPush PRN (00:38)
[2017-01-14 01:18] VITALS: BP 143/87
[2017-01-14] MEDS: PIPERACILLIN/TAZO 2.25 GM in NS 50 ML IV SCH ×4 (02:02→23:44)
[2017-01-14] MEDS: GABAPENTIN 250 MG/5 ML ORAL SOL NG SCH ×4 (02:42→20:41)
[2017-01-14] MEDS: INSULIN ASPART 100 UNITS/ML, PEN SQ-INSULIN SCH ×5 (06:07→23:43)
[2017-01-14 07:47] VITALS: BP 156/96
[2017-01-14] MEDS: CLOPIDOGREL 75 MG TABLET NG SCH (08:00)
[2017-01-14] MEDS: CHOLECALCIFEROL 1,000 UNIT TABLET NG SCH (08:00)
[2017-01-14] MEDS: INSULIN DETEMIR 100 UNITS/ML, PEN SQ-INSULIN SCH (10:20)
[2017-01-14 11:06] LABS: WEST NILE VIRUS IGG CSF Negative (Negative); WEST NILE VIRUS IGM CSF Negative (Negative)
[2017-01-14 13:33] VITALS: BP 155/85
[2017-01-14 14:42] LABS: ABG COLLECTION SITE RIGHT RADIAL; COLLATERAL CIRCULATION TESTING NORMAL
[2017-01-14] MEDS: ENOXAPARIN 30 MG/0.3 ML SQ SCH (14:48)
[2017-01-14 14:53] LABS: BLOOD UREA NITROGEN 71 mg/dL (7-18)
[2017-01-14 20:18] VITALS: BP 159/82
[2017-01-15 02:50] VITALS: BP 134/74
[2017-01-15] MEDS: INSULIN ASPART 100 UNITS/ML, PEN SQ-INSULIN SCH ×6 (03:42→22:58)
[2017-01-15 06:04] LABS: HEMATOCRIT 35.1 % (39.2-51.8); HEMOGLOBIN 11.8 g/dL (13.7-18.0); WHITE BLOOD COUNT 11.8 x10^3/uL (3.4-10)
[2017-01-15 06:14] LABS: BLOOD UREA NITROGEN 82 mg/dL (7-18)
[2017-01-15] MEDS ORDERED: INSULIN DETEMIR 100 UNITS/ML, PEN SQ-INSULIN SCH ×2 (07:30)
[2017-01-15] MEDS: GABAPENTIN 250 MG/5 ML ORAL SOL NG SCH ×3 (08:01→21:17)
[2017-01-15] MEDS: CLOPIDOGREL 75 MG TABLET NG SCH (08:01)
[2017-01-15] MEDS: CHOLECALCIFEROL 1,000 UNIT TABLET NG SCH (08:01)
[2017-01-15] MEDS: PIPERACILLIN/TAZO 2.25 GM in NS 50 ML IV SCH (08:01)
[2017-01-15 08:46] VITALS: BP 144/79
[2017-01-15] MEDS ORDERED: INSULIN DETEMIR 100 UNITS/ML, PEN SQ-INSULIN ONE (09:30)
[2017-01-15] MEDS ORDERED: INSULIN ASPART 100 UNITS/ML, PEN SQ-INSULIN ONE (11:30)
[2017-01-15 14:00] VITALS: BP 143/76
[2017-01-15] MEDS: ENOXAPARIN 30 MG/0.3 ML SQ SCH (15:22)
[2017-01-15 20:46] VITALS: BP 128/80
[2017-01-15] MEDS: INSULIN DETEMIR 100 UNITS/ML, PEN SQ-INSULIN SCH (21:18)
[2017-01-16 02:35] VITALS: BP 135/85
[2017-01-16] MEDS: INSULIN ASPART 100 UNITS/ML, PEN SQ-INSULIN SCH ×6 (03:05→23:38)
[2017-01-16 05:31] LABS: HEMATOCRIT 36.6 % (39.2-51.8); HEMOGLOBIN 12.4 g/dL (13.7-18.0); WHITE BLOOD COUNT 15.6 x10^3/uL (3.4-10)
[2017-01-16 05:34] LABS: ASPARTATE AMINO TRANSFERASE 31 U/L (15-37); BLOOD UREA NITROGEN 48 mg/dL (7-18)
[2017-01-16] MEDS ORDERED: INSULIN DETEMIR 100 UNITS/ML, PEN SQ-INSULIN SCH ×2 (07:30→21:00)
[2017-01-16 08:41] VITALS: BP 145/86
[2017-01-16] MEDS: GABAPENTIN 250 MG/5 ML ORAL SOL NG SCH ×3 (08:46→20:04)
[2017-01-16] MEDS: CHOLECALCIFEROL 1,000 UNIT TABLET NG SCH (08:46)
[2017-01-16] MEDS: CLOPIDOGREL 75 MG TABLET NG SCH (08:47)
[2017-01-16 14:30] VITALS: BP 153/85
[2017-01-16] MEDS: ENOXAPARIN 30 MG/0.3 ML SQ SCH (15:33)
[2017-01-16 20:38] VITALS: BP 158/85
[2017-01-17 01:25] VITALS: BP 139/71
[2017-01-17] MEDS: INSULIN ASPART 100 UNITS/ML, PEN SQ-INSULIN SCH ×5 (04:02→21:03)
[2017-01-17 05:45] LABS: HEMATOCRIT 37.5 % (39.2-51.8); HEMOGLOBIN 12.7 g/dL (13.7-18.0)
[2017-01-17 05:53] LABS: ASPARTATE AMINO TRANSFERASE 30 U/L (15-37); BLOOD UREA NITROGEN 68 mg/dL (7-18)
[2017-01-17] MEDS ORDERED: INSULIN DETEMIR 100 UNITS/ML, PEN SQ-INSULIN SCH (07:30)
[2017-01-17 08:14] VITALS: BP 144/76
[2017-01-17] MEDS ORDERED: INSULIN DETEMIR 100 UNITS/ML, PEN SQ-INSULIN ONE (08:30)
[2017-01-17] MEDS: CHOLECALCIFEROL 1,000 UNIT TABLET NG SCH (08:52)
[2017-01-17] MEDS: HEPARIN 5,000 UNITS/ML, 1ML SQ SCH ×2 (08:52→17:35)
[2017-01-17] MEDS: CLOPIDOGREL 75 MG TABLET NG SCH (08:52)
[2017-01-17] MEDS: GABAPENTIN 250 MG/5 ML ORAL SOL NG SCH ×3 (08:52→21:01)
[2017-01-17] MEDS: INSULIN DETEMIR 100 UNITS/ML, PEN SQ-INSULIN SCH (21:02)
[2017-01-17 21:52] VITALS: BP 114/62
[2017-01-18] MEDS: INSULIN ASPART 100 UNITS/ML, PEN SQ-INSULIN SCH ×6 (00:36→21:56)
[2017-01-18] MEDS: HEPARIN 5,000 UNITS/ML, 1ML SQ SCH ×3 (00:36→18:26)
[2017-01-18 04:26] VITALS: BP 117/77
[2017-01-18 05:01] LABS: HEMOGLOBIN 13.4 g/dL (13.7-18.0); WHITE BLOOD COUNT 18.1 x10^3/uL (3.4-10)
[2017-01-18 05:24] LABS: BLOOD UREA NITROGEN 50 mg/dL (7-18)
[2017-01-18] MEDS ORDERED: INSULIN DETEMIR 100 UNITS/ML, PEN SQ-INSULIN SCH (07:30)
[2017-01-18 07:32] VITALS: BP 127/82
[2017-01-18] MEDS: GABAPENTIN 250 MG/5 ML ORAL SOL NG SCH ×3 (09:49→23:36)
[2017-01-18] MEDS: CHOLECALCIFEROL 1,000 UNIT TABLET NG SCH (09:49)
[2017-01-18] MEDS: CLOPIDOGREL 75 MG TABLET NG SCH (09:49)
[2017-01-18 12:32] VITALS: BP 142/87
[2017-01-18 19:40] VITALS: BP 104/72
[2017-01-18] MEDS: INSULIN DETEMIR 100 UNITS/ML, PEN SQ-INSULIN SCH (21:57)
[2017-01-19 02:00] VITALS: BP 118/80
[2017-01-19] MEDS: HEPARIN 5,000 UNITS/ML, 1ML SQ SCH ×3 (02:46→17:44)
[2017-01-19] MEDS: INSULIN ASPART 100 UNITS/ML, PEN SQ-INSULIN SCH ×6 (02:46→20:27)
[2017-01-19 05:21] LABS: HEMATOCRIT 37.8 % (39.2-51.8); HEMOGLOBIN 12.8 g/dL (13.7-18.0); WHITE BLOOD COUNT 19.9 x10^3/uL (3.4-10)
[2017-01-19 05:56] LABS: ASPARTATE AMINO TRANSFERASE 27 U/L (15-37); BLOOD UREA NITROGEN 77 mg/dL (7-18)
[2017-01-19 07:10] VITALS: BP 118/80
[2017-01-19] MEDS ORDERED: INSULIN DETEMIR 100 UNITS/ML, PEN SQ-INSULIN SCH ×3 (07:30→21:00)
[2017-01-19] MEDS: CLOPIDOGREL 75 MG TABLET NG SCH (07:59)
[2017-01-19] MEDS: CHOLECALCIFEROL 1,000 UNIT TABLET NG SCH (08:00)
[2017-01-19] MEDS: GABAPENTIN 250 MG/5 ML ORAL SOL NG SCH ×3 (08:00→20:26)
[2017-01-19 08:06] LABS: NGI WEST NILE VIRUS RT PCR Negative (.)
[2017-01-19 08:06] LABS: NGI WEST NILE VIRUS RT PCR Negative (.)
[2017-01-19 13:07] VITALS: BP 115/81
[2017-01-19 18:20] LABS: PATH.CAST-FLAG NOT PRESENT; SPERM-FLAG NOT PRESENT; SRC-FLAG NOT PRESENT; XTAL-FLAG NOT PRESENT; YLC-FLAG NOT PRESENT
[2017-01-19 20:00] VITALS: BP 107/75
[2017-01-20 01:13] VITALS: BP 144/99
[2017-01-20] MEDS: HEPARIN 5,000 UNITS/ML, 1ML SQ SCH ×3 (01:16→17:33)
[2017-01-20 05:28] LABS: HEMATOCRIT 38.2 % (39.2-51.8); HEMOGLOBIN 12.8 g/dL (13.7-18.0); WHITE BLOOD COUNT 19.5 x10^3/uL (3.4-10)
[2017-01-20 05:37] LABS: BLOOD UREA NITROGEN 98 mg/dL (7-18)
[2017-01-20 07:21] VITALS: BP 127/85
[2017-01-20] MEDS: INSULIN ASPART 100 UNITS/ML, PEN SQ-INSULIN SCH ×4 (08:21→20:14)
[2017-01-20] MEDS ORDERED: INSULIN DETEMIR 100 UNITS/ML, PEN SQ-INSULIN SCH ×2 (08:30→21:00)
[2017-01-20] MEDS: CHOLECALCIFEROL 1,000 UNIT TABLET NG SCH (09:25)
[2017-01-20] MEDS: CLOPIDOGREL 75 MG TABLET NG SCH (09:25)
[2017-01-20] MEDS: GABAPENTIN 250 MG/5 ML ORAL SOL NG SCH ×3 (09:26→20:13)
[2017-01-20 14:00] VITALS: BP 104/62
[2017-01-20] MEDS: INSULIN DETEMIR 100 UNITS/ML, PEN SQ-INSULIN SCH (17:34)
[2017-01-20 20:00] VITALS: BP 120/81
[2017-01-21 02:00] VITALS: BP 100/70
[2017-01-21] MEDS: HEPARIN 5,000 UNITS/ML, 1ML SQ SCH ×3 (02:56→18:30)
[2017-01-21 06:38] LABS: HEMATOCRIT 40.5 % (39.2-51.8); HEMOGLOBIN 13.5 g/dL (13.7-18.0); WHITE BLOOD COUNT 19.3 x10^3/uL (3.4-10)
[2017-01-21 06:45] LABS: BLOOD UREA NITROGEN 61 mg/dL (7-18)
[2017-01-21 06:51] LABS: ASPARTATE AMINO TRANSFERASE 36 U/L (15-37)
[2017-01-21] MEDS: INSULIN ASPART 100 UNITS/ML, PEN SQ-INSULIN SCH ×4 (07:00→22:22)
[2017-01-21] MEDS ORDERED: INSULIN DETEMIR 100 UNITS/ML, PEN SQ-INSULIN SCH (07:30)
[2017-01-21 08:15] VITALS: BP 140/80
[2017-01-21] MEDS: CHOLECALCIFEROL 1,000 UNIT TABLET NG SCH (09:00)
[2017-01-21] MEDS: CLOPIDOGREL 75 MG TABLET NG SCH (09:51)
[2017-01-21] MEDS: GABAPENTIN 250 MG/5 ML ORAL SOL NG SCH ×3 (09:51→22:20)
[2017-01-21] MEDS: INSULIN DETEMIR 100 UNITS/ML, PEN SQ-INSULIN SCH ×3 (09:59→22:21)
[2017-01-21 14:00] VITALS: BP 126/70
[2017-01-21 20:00] VITALS: BP 114/82
[2017-01-22 02:00] VITALS: BP 102/70
[2017-01-22] MEDS: HEPARIN 5,000 UNITS/ML, 1ML SQ SCH ×3 (02:58→17:44)
[2017-01-22 05:35] LABS: HEMATOCRIT 38.2 % (39.2-51.8); HEMOGLOBIN 12.8 g/dL (13.7-18.0); WHITE BLOOD COUNT 16.7 x10^3/uL (3.4-10)
[2017-01-22 05:56] LABS: ASPARTATE AMINO TRANSFERASE 33 U/L (15-37); BLOOD UREA NITROGEN 82 mg/dL (7-18); CARCINOEMBRYONIC ANTIGEN 0.95 ng/mL (0.0-3.00)
[2017-01-22 07:15] VITALS: BP 94/54
[2017-01-22 09:51] LABS: HEP B SURF. AB < 3.1 mIU/mL (0.0-10.0)
[2017-01-22] MEDS: INSULIN DETEMIR 100 UNITS/ML, PEN SQ-INSULIN SCH ×3 (09:51→21:00)
[2017-01-22] MEDS: INSULIN ASPART 100 UNITS/ML, PEN SQ-INSULIN SCH ×4 (09:51→21:00)
[2017-01-22 12:50] VITALS: BP 104/70
[2017-01-22] MEDS: GABAPENTIN 250 MG/5 ML ORAL SOL NG SCH ×4 (12:59→21:00)
[2017-01-22] MEDS: CLOPIDOGREL 75 MG TABLET NG SCH (13:00)
[2017-01-22] MEDS: CHOLECALCIFEROL 1,000 UNIT TABLET NG SCH (13:02)
[2017-01-22 18:42] VITALS: BP 92/67
[2017-01-23 01:23] VITALS: BP 93/64
[2017-01-23] MEDS: HEPARIN 5,000 UNITS/ML, 1ML SQ SCH ×2 (02:00→10:15)
[2017-01-23 04:58] LABS: HEMATOCRIT 40.6 % (39.2-51.8); HEMOGLOBIN 13.7 g/dL (13.7-18.0); WHITE BLOOD COUNT 16.6 x10^3/uL (3.4-10)
[2017-01-23 05:16] LABS: ASPARTATE AMINO TRANSFERASE 35 U/L (15-37); BLOOD UREA NITROGEN 60 mg/dL (7-18)
[2017-01-23] MEDS: INSULIN ASPART 100 UNITS/ML, PEN SQ-INSULIN SCH ×3 (07:00→20:34)
[2017-01-23 08:13] VITALS: BP 98/63
[2017-01-23] MEDS: GABAPENTIN 250 MG/5 ML ORAL SOL NG SCH ×4 (09:00→20:34)
[2017-01-23 09:07] LABS: CRYPTOCOCCUS ANTIGEN CSF Negative (Negative); MANDATED REFLEX TO CULTURE Not Indicated (.)
[2017-01-23 09:07] LABS: CRYPTOCOCCUS ANTIGEN SERUM Negative (Negative)
[2017-01-23] MEDS: INSULIN DETEMIR 100 UNITS/ML, PEN SQ-INSULIN SCH ×2 (10:13→17:14)
[2017-01-23] MEDS: CHOLECALCIFEROL 1,000 UNIT TABLET NG SCH (10:13)
[2017-01-23] MEDS: CLOPIDOGREL 75 MG TABLET NG SCH (10:13)
[2017-01-23 12:32] VITALS: BP 110/77
[2017-01-23 18:33] VITALS: BP 108/73
[2017-01-24 02:13] VITALS: BP 122/78
[2017-01-24 04:52] LABS: HEMATOCRIT 37.2 % (39.2-51.8); HEMOGLOBIN 12.9 g/dL (13.7-18.0); WHITE BLOOD COUNT 16.8 x10^3/uL (3.4-10)
[2017-01-24 05:13] LABS: ASPARTATE AMINO TRANSFERASE 29 U/L (15-37); BLOOD UREA NITROGEN 82 mg/dL (7-18)
[2017-01-24] MEDS: INSULIN ASPART 100 UNITS/ML, PEN SQ-INSULIN SCH ×4 (07:00→21:00)
[2017-01-24 07:27] VITALS: BP 103/70
[2017-01-24] MEDS: GABAPENTIN 250 MG/5 ML ORAL SOL NG SCH (10:27)
[2017-01-24] MEDS: CHOLECALCIFEROL 1,000 UNIT TABLET NG SCH (10:27)
[2017-01-24] MEDS: INSULIN DETEMIR 100 UNITS/ML, PEN SQ-INSULIN SCH ×2 (10:28→17:54)
[2017-01-24 12:45] VITALS: BP 92/61
[2017-01-24] MEDS: GABAPENTIN 100 MG CAPSULE PO SCH ×2 (17:36→23:21)
[2017-01-24 20:00] VITALS: BP 109/57
[2017-01-25 02:52] VITALS: BP_SYST 131; BP_SYST 92; BP_DIAS 61
[2017-01-25 06:12] LABS: HEMOGLOBIN 11.9 g/dL (13.7-18.0); WHITE BLOOD COUNT 12.7 x10^3/uL (3.4-10)
[2017-01-25 06:38] LABS: ASPARTATE AMINO TRANSFERASE 31 U/L (15-37); BLOOD UREA NITROGEN 43 mg/dL (7-18)
[2017-01-25] MEDS: INSULIN ASPART 100 UNITS/ML, PEN SQ-INSULIN SCH ×4 (07:00→21:00)
[2017-01-25 07:37] VITALS: BP 107/73
[2017-01-25] MEDS: CHOLECALCIFEROL 1,000 UNIT TABLET NG SCH (09:08)
[2017-01-25] MEDS: GABAPENTIN 100 MG CAPSULE PO SCH ×3 (09:08→21:03)
[2017-01-25] MEDS: INSULIN DETEMIR 100 UNITS/ML, PEN SQ-INSULIN SCH ×2 (09:51→16:39)
[2017-01-25 13:43] VITALS: BP 107/70
[2017-01-25 17:06] LABS: COCCIDIOIDES AB (CF) <1:2 (<1:2); COCCIDIOIDES IGG 0.3 IV (<=0.9); COCCIDIOIDES IGM 0.1 IV (<=0.9)
[2017-01-25 20:31] VITALS: BP 108/67
[2017-01-26 01:16] VITALS: BP 127/81
[2017-01-26 06:43] VITALS: BP 120/68
[2017-01-26] MEDS: INSULIN ASPART 100 UNITS/ML, PEN SQ-INSULIN SCH ×4 (07:00→20:28)
[2017-01-26] MEDS: GABAPENTIN 100 MG CAPSULE PO SCH ×3 (08:11→20:28)
[2017-01-26] MEDS: INSULIN DETEMIR 100 UNITS/ML, PEN SQ-INSULIN SCH (08:11)
[2017-01-26] MEDS: CHOLECALCIFEROL 1,000 UNIT TABLET NG SCH (08:12)
[2017-01-26 08:39] LABS: HEMATOCRIT 33.6 % (39.2-51.8); HEMOGLOBIN 11.4 g/dL (13.7-18.0); WHITE BLOOD COUNT 12.5 x10^3/uL (3.4-10)
[2017-01-26 09:08] LABS: ASPARTATE AMINO TRANSFERASE 31 U/L (15-37); BLOOD UREA NITROGEN 56 mg/dL (7-18)
[2017-01-26] MEDS: CLOPIDOGREL 75 MG TABLET PO SCH (13:30)
[2017-01-26 14:00] VITALS: BP 128/70
[2017-01-26] MEDS ORDERED: INSULIN DETEMIR 100 UNITS/ML, PEN SQ-INSULIN SCH (17:00)
[2017-01-26 19:30] VITALS: BP 98/65
[2017-01-26] MEDS: HEPARIN 5,000 UNITS/ML, 1ML SQ SCH (21:00)
[2017-01-27 03:48] VITALS: BP 110/69
[2017-01-27 05:39] LABS: HEMATOCRIT 34.4 % (39.2-51.8); HEMOGLOBIN 11.7 g/dL (13.7-18.0); WHITE BLOOD COUNT 12.2 x10^3/uL (3.4-10)
[2017-01-27 06:03] LABS: ASPARTATE AMINO TRANSFERASE 39 U/L (15-37); BLOOD UREA NITROGEN 41 mg/dL (7-18); FERRITIN 1442.4 ng/mL (26-388); TOTAL IRON BINDING CAPACITY 190 mcg/dL (250-450)
[2017-01-27 07:12] VITALS: BP 112/71
[2017-01-27] MEDS: INSULIN ASPART 100 UNITS/ML, PEN SQ-INSULIN SCH ×4 (07:42→21:46)
[2017-01-27] MEDS: HEPARIN 5,000 UNITS/ML, 1ML SQ SCH ×3 (07:52→23:00)
[2017-01-27] MEDS: CHOLECALCIFEROL 1,000 UNIT TABLET NG SCH (09:16)
[2017-01-27] MEDS: CLOPIDOGREL 75 MG TABLET PO SCH (09:16)
[2017-01-27] MEDS: GABAPENTIN 100 MG CAPSULE PO SCH ×3 (09:16→21:00)
[2017-01-27] MEDS ORDERED: ATOR20TA9 PO (11:40)
[2017-01-27] MEDS ORDERED: GABA-826 PO (11:40)
[2017-01-27] MEDS ORDERED: FERR-36 PO (11:40)
[2017-01-27] MEDS ORDERED: INSU100I28 SQ-INSULIN (11:40)
[2017-01-27] MEDS ORDERED: CHOL10003 NG (11:40)
[2017-01-27] MEDS ORDERED: CARV3.1212 PO (11:42)
[2017-01-27] MEDS ORDERED: TAMS-11 PO (11:44)
[2017-01-27] MEDS ORDERED: INSU100V13 SC (11:47)
[2017-01-27] MEDS ORDERED: INSU100I18 SQ-INSULIN (11:49)
[2017-01-27] MEDS ORDERED: TAMSULOSIN 0.4 MG CAP.ER.24H PO ONE (12:00)
[2017-01-27] MEDS: INSULIN DETEMIR 100 UNITS/ML, PEN SQ-INSULIN SCH (12:30)
[2017-01-27 13:28] VITALS: BP 98/65
[2017-01-27 16:16] LABS: WESTNILEVIRUSIGG SEE PRINTED REPORT; WESTNILEVIRUSIGM SEE PRINTED REPORT
[2017-01-27] MEDS: FERROUS SULFATE 325 MG TABLET PO SCH (16:51)
[2017-01-27] MEDS ORDERED: INSULIN DETEMIR 100 UNITS/ML, PEN SQ-INSULIN SCH (17:00)
[2017-01-27 19:00] VITALS: BP 101/62
[2017-01-28 03:19] VITALS: BP 102/71
[2017-01-28] MEDS: INSULIN ASPART 100 UNITS/ML, PEN SQ-INSULIN SCH ×2 (07:00→11:00)
[2017-01-28] MEDS: HEPARIN 5,000 UNITS/ML, 1ML SQ SCH ×2 (07:00→14:10)
[2017-01-28 07:05] VITALS: BP 103/68
[2017-01-28] MEDS: INSULIN DETEMIR 100 UNITS/ML, PEN SQ-INSULIN SCH (08:00)
[2017-01-28] MEDS ORDERED: CATHFLO-ALTEPLASE 2 MG/2 ML CATHFLUSH ONE ×2 (10:00)
[2017-01-28] MEDS: GABAPENTIN 100 MG CAPSULE PO SCH (14:36)
[2017-01-28] MEDS: FERROUS SULFATE 325 MG TABLET PO SCH (14:36)
[2017-01-28] MEDS: CLOPIDOGREL 75 MG TABLET PO SCH (14:36)
[2017-01-28] MEDS: CHOLECALCIFEROL 1,000 UNIT TABLET NG SCH (14:36)
== END 2017-01-28 16:33 | DRG 871 ==
LOC: ED 16:10 → EDIP 17:34 → 4EST 20:01 → 4WST 01-11 20:25
PROVIDERS: ADMIT Internal Medicine; ATTEND Family Medicine
PROC: 009U3ZX Drainage of Spinal Canal, Percutaneous Approach, Diagnostic (ICD-10-PCS; 2017-01-11)
PROC: B01BZZZ Fluoroscopy of Spinal Cord (ICD-10-PCS; 2017-01-11)
PROC: 5A09357 Assistance with Respiratory Ventilation, Less than 24 Consecutive Hours, Continuous Positive Airway Pressure (ICD-10-PCS; principal; 2017-01-19)
DX: A41.9 Sepsis, unspecified organism (principal); N18.6 End stage renal disease; J96.00 Acute respiratory failure, unspecified whether with hypoxia or hypercapnia; I63.9 Cerebral infarction, unspecified; E44.0 Moderate protein-calorie malnutrition; N17.0 Acute kidney failure with tubular necrosis; G93.41 Metabolic encephalopathy; E44.1 Mild protein-calorie malnutrition; N25.0 Renal osteodystrophy; G03.9 Meningitis, unspecified; A86 Unspecified viral encephalitis; E87.1 Hypo-osmolality and hyponatremia; B37.49 Other urogenital candidiasis; I13.2 Hypertensive heart and chronic kidney disease with heart failure and with stage 5 chronic kidney disease, or end stage renal disease; E11.52 Type 2 diabetes mellitus with diabetic peripheral angiopathy with gangrene; I50.30 Unspecified diastolic (congestive) heart failure; J98.11 Atelectasis; R47.01 Aphasia; D63.8 Anemia in other chronic diseases classified elsewhere; D75.89 Other specified diseases of blood and blood-forming organs; E11.21 Type 2 diabetes mellitus with diabetic nephropathy; E11.22 Type 2 diabetes mellitus with diabetic chronic kidney disease; E11.40 Type 2 diabetes mellitus with diabetic neuropathy, unspecified; E11.65 Type 2 diabetes mellitus with hyperglycemia; Z68.30 Body mass index [BMI] 30.0-30.9, adult; E55.9 Vitamin D deficiency, unspecified; I35.0 Nonrheumatic aortic (valve) stenosis; L08.9 Local infection of the skin and subcutaneous tissue, unspecified; M10.9 Gout, unspecified; M19.90 Unspecified osteoarthritis, unspecified site; N14.1 Nephropathy induced by other drugs, medicaments and biological substances; T36.8X5A Adverse effect of other systemic antibiotics, initial encounter; T50.8X5A Adverse effect of diagnostic agents, initial encounter; Z79.4 Long term (current) use of insulin; Z82.49 Family history of ischemic heart disease and other diseases of the circulatory system; Z86.73 Personal history of transient ischemic attack (TIA), and cerebral infarction without residual deficits; Z87.891 Personal history of nicotine dependence; Z89.422 Acquired absence of other left toe(s); Z99.2 Dependence on renal dialysis
CPT/HCPCS: 36415; 36600; 62270; 70450; 70551; 71010; 74000; 74176; 74230; 80048; 80053; 80202; 81001; 82040; 82306; 82378; 82728; 82803; 82945; 82947; 82962; 83036; 83540; 83550; 83605; 83735; 83970; 84100; 84145; 84157; 84484; 84550; 85025; 85347; 85384; 85576; 85610; 85651; 86140; 86301; 86480; 86592; 86635; 86651; 86653; 86654; 86694; 86704; 86706; 86710; 86735; 86765; 86787; 86788; 86789; 87040; 87070; 87081; 87086; 87106; 87116; 87186; 87205; 87206; 87210; 87252; 87324; 87340; 87529; 87798; 87899; 89051; 93005; 93306; 93880; 93970; 95819; 96365; J0133; J0696; J1644; J1650; J1815; J2543; J2997; J3370; J3490; J2060; J2270; J7030; J7040; J7050